=== PATIENT | female | born 1980 | race Caucasian/White ===

== ENCOUNTER 2016-06-26 18:57 | Emergency (ER) | payer OTHER ==
[~2016-06-26] VITALS: Ht 162.6 cm; Wt 59.0 kg
[2016-06-26 19:08] VITALS: BP 115/76
--- NOTE | 2016-06-26 20:09 | NUR ---
PT TAKEN TO BED 2
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
[2016-06-26] MEDS ORDERED: metroNIDAZOLE 500 MG/NS PREMIX 100 ML IV ONE (21:15)
[2016-06-26] MEDS ORDERED: FAMOTIDINE 20 MG/2 ML VIAL IVP ONE (21:15)
--- NOTE | 2016-06-26 21:30 | NUR ---
PT TAKEN TO ULTRASOUND
--- NOTE | 2016-06-26 21:32 | NUR ---
[facility] in [facility] - 06/26/16 at 2132 by ROSALINDACA PT TAKEN TO CT
--- NOTE | 2016-06-26 22:00 | NUR ---
PT BACK TO BED
--- NOTE | 2016-06-26 22:42 | NUR ---
IV removed, catheter intact and site benign. Applied folded 4x4 gauze and tape to stop bleeding.
[2016-06-26 22:45] VITALS: BP 118/75
--- NOTE | 2016-06-26 22:45 | NUR ---
Patient discharged with v/s stable BY DR. MARQUEZ . Written and verbal after care instructions given and explained BY DR. MARQUEZ. Patient alert, oriented and verbalized understanding of instructions BY DR. MARQUEZ. Ambulatory with steady gait. All questions addressed prior to discharge BY DR. MARQUEZ. ID band removed BY DR. MARQUEZ. Patient advised to follow up with PMD BY DR. MARQUEZ. Rx of FLAGYL 500MG TAB 1 TAB ORALLY 2 TIMES A DAY BY MOUTH, PEPCID 40MG 1 TAB ONCE A DAY BY MOUTH given BY DR. MARQUEZ. Patient educated on indication of medication including possible reaction and side effects BY DR. MARQUEZ. Opportunity to ask questions provided and answered BY DR. MARQUEZ.
== END 2016-06-26 22:45 | disposition home or self-care (01) ==
LOC: MED 18:57
DX: K52.9 Noninfective gastroenteritis and colitis, unspecified (principal); R03.0 Elevated blood-pressure reading, without diagnosis of hypertension; F41.9 Anxiety disorder, unspecified; G43.909 Migraine, unspecified, not intractable, without status migrainosus; Z98.890 Other specified postprocedural states
CPT/HCPCS: 36415; 76705; 80053; 81001; 81025; 82150; 83690; 85025; 86677; 93005; 96365; 96375; 99285; J3490

== ENCOUNTER 2018-10-08 21:03 | Emergency (ER) | payer OTHER ==
[~2018-10-08] VITALS: Ht 162.6 cm; Wt 61.2 kg
[2018-10-08 21:12] VITALS: BP 141/95
--- NOTE | 2018-10-08 21:23 | NUR ---
PT PROVIDED URINE SAMPLE; URINE AT BEDSIDE. PT AMBULATED W/ STEADY GAIT TO BED 10.
--- NOTE | 2018-10-08 21:37 | NUR ---
PT PRESENT TO ED W/GENERALIZED ABDOMINAL PAIN. PT SAID, "ON October I HAD BLACK STOOL THEN IT TURNED GREEN. NOW I HAVE RED BLOODY AND MUCOUSY DIARRHEA AND IT COLLINS WHEN I EAT." BOWEL SOUNDS HYPOACTIVE IN ALL 4 QUADRANTS. PT'S LAST MEAL 5 HOURS AGO. PATIENT WAITING BEDSIDE FOR MD FISCHER.
[2018-10-08] MEDS ORDERED: NACL 0.9% 1,000 ML IV ONE (21:40)
[2018-10-08] MEDS ORDERED: MORPHINE SULFATE 4 MG/ML SYR IVP ONE (21:40)
[2018-10-08] MEDS ORDERED: ONDANSETRON 4 MG/2 ML VIAL IVP ONE (21:40)
[2018-10-08] MEDS ORDERED: KETOROLAC 15 MG/ML VIAL IVP ONE (21:50)
[2018-10-08 22:12] LABS: BASOPHILS # (AUTO) 0.1 K/uL (0.00-0.22); EOSINOPHILS # (AUTO) 0.1 K/uL (0-0.4); EOSINOPHILS % (AUTO) 1.6 % (0.0-4.0); HEMATOCRIT 39.6 % (36-48); HEMOGLOBIN 13.5 g/dL (12.0-16.0); LYMPHOCYTES # (AUTO) 1.7 K/uL (2.5-16.5); MEAN CORPUSCULAR HEMOGLOBIN 28 pg (27-31); MEAN CORPUSCULAR HGB CONC 34 g/dL (33-37); MEAN CORPUSCULAR VOLUME 83.7 fL (80-94); MONOCYTES # (AUTO) 0.4 K/uL (0.8-1.0); MONOCYTES % (AUTO) 8.2 % (1.7-9.3); NEUTROPHILS # (AUTO) 3.1 K/uL (1.8-7.7); NEUTROPHILS % (AUTO) 57.2 % (42.2-75.2); PLATELET COUNT (AUTO) 232 K/uL (140-450); RED BLOOD CELL COUNT(AUTO) 4.73 MIL/uL (4.20-5.40); RED CELL DISTRIBUTION WIDTH 13.1 % (11.6-13.7); WHITE BLOOD COUNT (AUTO) 5.5 K/uL (4.8-10.8)
[2018-10-08 22:14] LABS: APPEARANCE,URINE CLEAR (CLEAR); BILIRUBIN,URINE NEGATIVE (NEGATIVE); BLOOD, URINE TRACE-I (NEGATIVE); COLOR,URINE YELLOW (YELLOW); LEUKOCYTE ESTERASE ,URINE NEGATIVE (NEGATIVE); NITRITE, URINE NEGATIVE (NEGATIVE); PH,URINE 6.5 (5.0-9.0); UGLUCOSE NEGATIVE (NEGATIVE)
[2018-10-08 22:20] LABS: ANION GAP 12.6 (8-16); CARBON DIOXIDE 24.1 mmol/L (21-32); CREATININE 0.9 mg/dL (0.6-1.3); POTASSIUM 3.7 mmol/L (3.5-5.1)
[2018-10-08 22:26] LABS: ALBUMIN 3.7 g/dL (3.4-5.0); TOTAL BILIRUBIN 0.3 mg/dL (0.0-1.0)
[2018-10-08 22:30] LABS: RBC,URINE 0-5 /HPF (0-5); WBC,URINE 0-5 /HPF (0-5)
[2018-10-08] MEDS ORDERED: metroNIDAZOLE 500 MG TAB PO ONE (22:50)
[2018-10-08 23:10] VITALS: BP 127/84
--- NOTE | 2018-10-08 23:10 | NUR ---
Patient discharged with v/s stable. Written and verbal after care instructions given and explained. Patient alert, oriented and verbalized understanding of instructions. Ambulatory with steady gait. All questions addressed prior to discharge. ID band removed. Patient advised to follow up with PMD. Rx of FLAGYL given. Patient educated on indication of medication including possible reaction and side effects. Opportunity to ask questions provided and answered.
== END 2018-10-08 23:10 | disposition home or self-care (01) ==
LOC: MED 21:03
DX: K52.9 Noninfective gastroenteritis and colitis, unspecified (principal)
CPT/HCPCS: 36415; 74176; 80053; 81001; 81025; 83690; 85025; 96361; 96374; 96375; 99284; J1885; J2405; J2270; J7030

== ENCOUNTER 2020-03-06 19:38 | Emergency (ER) | payer OTHER ==
[~2020-03-06] VITALS: Ht 162.6 cm; Wt 46.7 kg
[2020-03-06 20:00] VITALS: BP 124/56
--- NOTE | 2020-03-06 20:05 | NUR ---
TO BED # 05 AMBULATORY
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
--- NOTE | 2020-03-06 20:18 | NUR ---
Dr. Gupta examining patient.
[2020-03-06] MEDS ORDERED: FLUORESCEIN OPTH STRIP 1 MG OP ONE (20:25)
--- NOTE | 2020-03-06 20:40 | NUR ---
BERNARD MALDONADO FLORESCEIN STRIP ADMINISTERED BY
[2020-03-06 20:54] VITALS: BP 124/56
--- NOTE | 2020-03-06 20:54 | NUR ---
Patient discharged with v/s stable. Written and verbal after care instructions given and explained. Patient alert, oriented and verbalized understanding of instructions. Ambulatory with steady gait. All questions addressed prior to discharge. ID band removed. Patient advised to follow up with PMD. Rx of NORCO, VALIUM, IBUPROFEN given. Patient educated on indication of medication including possible reaction and side effects. Opportunity to ask questions provided and answered.
== END 2020-03-06 20:54 | disposition home or self-care (01) ==
LOC: MED 19:38
DX: S00.83XA Contusion of other part of head, initial encounter (principal); S09.90XA Unspecified injury of head, initial encounter; Z98.82 Breast implant status; V89.2XXA Person injured in unspecified motor-vehicle accident, traffic, initial encounter; Y93.89 Activity, other specified; Y92.89 Other specified places as the place of occurrence of the external cause; Y99.8 Other external cause status
CPT/HCPCS: 99283